=== PATIENT | female | born 1960 | race African-American/Black ===

== ENCOUNTER 2019-04-28 09:39 | Day surgery (SDC) | payer OTHER ==
[2019-04-27 13:48] VITALS: BMI 21.7
[~2019-04-28 09:39] MED LIST: BUPIVACAINE HCL/PF 0.25% (2.5MG/ML) 10 ML VIAL IJ ONE; LIDOCAINE HCL 1%, 10 MG/ML (50 mL VIAL) IJ ONE
[2019-04-28] MEDS ORDERED: LIDOCAINE HCL 1%, 10 MG/ML (20ML VIAL) ONE ×2 (10:52→12:02)
[2019-04-28] MEDS ORDERED: BETAMET ACET/BETAMET NA PH 30 MG/5 ML VIAL ONE (10:52)
[2019-04-28] MEDS ORDERED: BUPIVACAINE HCL/PF 0.25% (2.5MG/ML) 10 ML VIAL ONE (10:57)
[2019-04-28] MEDS ORDERED: MIDAZOLAM HCL 2 MG/2 ML SINGLE DOSE VIAL ONE (12:08)
[2019-04-28] MEDS ORDERED: IOHEXOL 180 MG/1 ML ML IJ ONE ×3 (12:15→12:19)
[2019-04-28] MEDS ORDERED: BETAMET ACET/BETAMET NA PH 30 MG/5 ML VIAL IJ ONE ×2 (12:16→12:19)
[2019-04-28] MEDS ORDERED: BUPIVACAINE HCL/PF 0.25% (2.5MG/ML) 10 ML VIAL IJ ONE (12:19)
[2019-04-28] MEDS ORDERED: LIDOCAINE HCL 1%, 10 MG/ML (50 mL VIAL) NR ONE (12:19)
[2019-04-28] MEDS ORDERED: ceFAZolin SODIUM 1 GM VIAL ONE (12:27)
[2019-04-28] MEDS ORDERED: ceFAZolin SODIUM 1 GM VIAL IVPB ONE (12:29)
--- NOTE | 2019-04-28 13:49 | PROC ---
Procedure Note Procedure: Date of service: 04/28/2019 Preoperative Diagnosis: Low back pain and lumbar radiculopathy on right Postoperative Diagnosis: Same Procedure Performed: Lumbar Epidural Steroid Injection (LESI) on Right L4-5 with dye under Fluoroscopy Anesthesia: Local / MAC Anesthesiologist: Procedure: I discussed with the patient in detail about the risks, benefits, and alternatives to treatment not only limited to infection, headache, numbness , weakness, and injury to nerves, blood vessels and muscles. The patient understood, agreed and signed the written consent. The patient was placed in the prone position with the head, abdomen and legs supported with the pillows. The lumbosacral area was prepped and draped with Betadine times three in a sterile fashion. Lumbar vertebrae were identified under the C-arm. At L4-5 level on the right side, 3 ml of 1 % Lidocaine was infiltrated into the skin and subcutaneous tissue. A 3 inch, #20 gauge Tuohy needle was advanced to the epidural space with loss of resistance technique under fluoroscopic guidance. Aspiration was negative for cerebrospinal fluid and blood. 2ml of Omnipaque ( radio-opaque dye) was injected to confirm the tip of the needle into epidural space and spread of dye. There was no CSF or vascular spread. The spread of dye was noted cranially and caudally on epidurogram. Aspiration was done again which was negative. A solution of 2.5 ml of Celestone 2.5 ml of 0.25% Marcaine and a total of 5 ml was injected slowly. While Tuohy needle was withdrawn 2.0 ml of 1 % Lidocaine was infiltrated. Bleeding was checked. Betadine was wiped off. A sterile bandage was placed. The patient tolerated the procedure well. There were no immediate complications. The patient was transferred to the recovery room. The patient was observed for some time and discharged as per ASU criteria. The patient was told to apply ice at the injection site. Follow up appointment was given and also call my office at [phone]. If there is any problem, call my office or report to Emergency Room. Ben Casarez M.D.
--- NOTE | 2019-04-28 14:41 | RAPID ---
Physical Examination Vital Signs: Vital Signs Temperature 97.0 F L 04/28/19 12:47 Pulse Rate 74 04/28/19 12:47 Respiratory Rate 20 04/28/19 12:47 Blood Pressure 110/70 04/28/19 12:47 O2 Sat by Pulse Oximetry (%) 97 04/28/19 12:47 Rapid Response - Rapid Response Assessment: RR called at 13:51 amd the rapid response team responded immediately. RN reports pt got out of bed and experienced unwitnessed fall; pt found on floor leaning on RIGHT elbow. She is in the hospital today for steroid injection for pain. VS: BP 128/71, HR 78, , RR 21, o2 sat 100% GENERAL: AOx3, in no acute distress. HEAD: NCAT EYES: KWESI, EOMI, conjunctiva clear. NECK: Normal range of motion, supple without lymphadenopathy, JVD, or masses. LUNGS: CTAB. No wheezes, and no crackles. No accessory muscle use. HEART: RRR s1 s2 ABDOMEN: Soft, obese, NT, BS present in all 4 quadrants, non-distended, no JVD, MUSCULOSKELETAL: No bony deformities or tenderness. No CVA tenderness. UPPER EXTREMITIES: 2+ pulses, warm, well-perfused. No cyanosis. No clubbing. No peripheral edema. LOWER EXTREMITIES: 2+ pulses, warm, well-perfused. No calf tenderness. No peripheral edema. NEUROLOGICAL: No focal deficits. Cranial nerves II-XII intact. Normal speech. Gait not appreciated. PSYCHIATRIC: Cooperative. Good eye contact. Appropriate mood and affect. SKIN: RIGHT elbow errythema. Warm, dry, normal turgor, no rashes or lesions noted, normal capillary refill. A/P vasovagal syncope s/p anesthesia VS mechanical fall PLAN -RIGHT elbow xray -EKG -CBC, CMP - Troponin PT REFUSING HEAD CT and labwork; risks and benefits explained in detail. She denies use of blood thinning/anti-platelet agents Anesthesiologist contacted by RN. Pt counseled on risks/benefits of now having all exams/work-up done. She was advised to f/u with PCP PCP: Dr. Peres
[2019-04-28 17:26] VITALS: BP 132/72; PULSE 70; TEMP 98
--- NOTE | 2019-04-29 16:06 | EKG ---
Test Reason : Blood Pressure : / mmHG Vent. Rate : 062 BPM Atrial Rate : 062 BPM P-R Int : 138 ms QRS Dur : 090 ms QT Int : 422 ms P-R-T Axes : 056 044 053 degrees QTc Int : 428 ms NORMAL SINUS RHYTHM NORMAL ECG NO PREVIOUS ECGS AVAILABLE Confirmed by MD REYNA, OMID ([id number]) on 04/29/2019 4:05:26 PM Referred By: Ben Casarez Confirmed By:OMID ORELLANA MD
== END 2019-04-28 17:15 | disposition home or self-care (01) ==
LOC: JASU-SURG 09:39
PROVIDERS: ATTEND Physical Medicine & Rehabilitation
PROC: 3E0R33Z Introduction of Anti-inflammatory into Spinal Canal, Percutaneous Approach (ICD-10-PCS; 2019-04-28)
PROC: B01BZZZ Fluoroscopy of Spinal Cord (ICD-10-PCS; 2019-04-28)
PROC: 3E0R3BZ Introduction of Anesthetic Agent into Spinal Canal, Percutaneous Approach (ICD-10-PCS; principal; 2019-04-28 11:30)
DX: M54.16 Radiculopathy, lumbar region (principal); M54.5 Low back pain
CPT/HCPCS: 73070-TC-RT-FY; 76000-TC-FY; 93005; 93010

== ENCOUNTER 2023-05-04 03:53 | Day surgery (SDC) | payer OTHER ==
[2023-04-29 14:39] VITALS: BMI 23.9
[2023-05-04] MEDS ORDERED: LIDOCAINE HCL/PF 1% SDV 5ML VIAL ONE (07:21)
[2023-05-04] MEDS ORDERED: DEXAMETHASONE SOD PHOSPHATE 10 MG/1 ML VIAL ONE (07:22)
[2023-05-04] MEDS: LIDOCAINE 1% P/F 10 MG/ML VIAL INF ONE (09:48)
[2023-05-04] MEDS: IOHEXOL 180 MG/1 ML ML IJ ONE (09:48)
[2023-05-04] MEDS: DEXAMETHASONE SOD PHOSPHATE 10 MG/1 ML VIAL IVPUSH ONE (09:48)
[2023-05-04 10:24] VITALS: BP 111/60; PULSE 84; RESP 18; TEMP 97.8
[2023-05-04] MEDS ORDERED: ACETAMINOPHEN 500 MG TABLET (FP) PO PRN (10:53)
== END 2023-05-04 10:35 | disposition home or self-care (01) ==
LOC: JASU-SURG 03:53
PROVIDERS: ATTEND Pain Medicine Pain Medicine
PROC: 3E0R3BZ Introduction of Anesthetic Agent into Spinal Canal, Percutaneous Approach (ICD-10-PCS; 2023-05-04)
PROC: 3E0R33Z Introduction of Anti-inflammatory into Spinal Canal, Percutaneous Approach (ICD-10-PCS; principal; 2023-05-04 09:15)
DX: M48.061 Spinal stenosis, lumbar region without neurogenic claudication (principal); M54.16 Radiculopathy, lumbar region
CPT/HCPCS: 76000-TC-FY; J1100

== ENCOUNTER 2023-06-01 04:21 | Day surgery (SDC) | payer OTHER ==
[2023-05-27 08:45] VITALS: BMI 23.9
[2023-06-01] MEDS ORDERED: LIDOCAINE HCL/PF 1% SDV 5ML VIAL ONE (07:38)
[2023-06-01] MEDS ORDERED: TRIAMCINOLONE ACET 40MG/1ML VIAL ONE (07:38)
[2023-06-01] MEDS ORDERED: BUPIVACAINE HCL/PF 0.5% (5MG/ML) 10 ML VIAL ONE (07:38)
[2023-06-01 09:01] VITALS: RESP 20
[2023-06-01] MEDS ORDERED: ACETAMINOPHEN 500 MG TABLET (FP) PO PRN (09:47)
[2023-06-01] MEDS: LIDOCAINE HCL 1% PRESERVATIVE FREE - 30ML VIAL IJ ONE (10:53)
[2023-06-01] MEDS: IOHEXOL 180 MG/1 ML ML IJ ONE (10:54)
[2023-06-01] MEDS: TRIAMCINOLONE ACET 40MG/1ML VIAL IJ ONE (10:55)
[2023-06-01] MEDS: BUPIVACAINE HCL/PF 0.5% (5MG/ML) 10 ML VIAL IJ ONE (10:55)
[2023-06-01 11:32] VITALS: TEMP 98
[2023-06-01 11:49] VITALS: BP 116/70; PULSE 80
== END 2023-06-01 11:30 | disposition home or self-care (01) ==
LOC: JASU-SURG 04:21
PROVIDERS: ATTEND Pain Medicine Pain Medicine
PROC: 3E0U3BZ Introduction of Anesthetic Agent into Joints, Percutaneous Approach (ICD-10-PCS; 2023-06-01)
PROC: 3E0U33Z Introduction of Anti-inflammatory into Joints, Percutaneous Approach (ICD-10-PCS; principal; 2023-06-01 10:00)
DX: M53.3 Sacrococcygeal disorders, not elsewhere classified (principal)
CPT/HCPCS: 76000-TC-FY

== ENCOUNTER 2024-03-17 03:54 | Day surgery (SDC) | payer OTHER ==
[2024-03-16 11:20] VITALS: BMI 23.0
[2024-03-17] MEDS ORDERED: ACETAMINOPHEN 500 MG TABLET (FP) PO PRN (10:02)
[2024-03-17 13:33] VITALS: RESP 20
[2024-03-17] MEDS: LIDOCAINE HCL 1% PRESERVATIVE FREE - 30ML VIAL IJ ONE ×2 (14:30)
[2024-03-17] MEDS: IOHEXOL 180 MG/1 ML ML IJ ONE ×2 (14:32)
[2024-03-17] MEDS: DEXAMETHASONE SOD PHOSPHATE 10 MG/1 ML VIAL IVPUSH ONE ×2 (14:32)
[2024-03-17 14:57] VITALS: BP 161/71; PULSE 68; TEMP 98.4
== END 2024-03-17 15:16 | disposition home or self-care (01) ==
LOC: JASU-SURG 03:54
PROVIDERS: ATTEND Pain Medicine Pain Medicine
PROC: 3E0R3BZ Introduction of Anesthetic Agent into Spinal Canal, Percutaneous Approach (ICD-10-PCS; 2024-03-17)
PROC: 3E0R33Z Introduction of Anti-inflammatory into Spinal Canal, Percutaneous Approach (ICD-10-PCS; principal; 2024-03-17 14:45)
DX: M54.16 Radiculopathy, lumbar region (principal)
CPT/HCPCS: 76000-TC-FY; J1100